=== PATIENT | female | born 1965 | race Two or more races ===

== ENCOUNTER 2018-12-19 10:14 | Emergency (ER) | payer OTHER ==
[~2018-12-19] VITALS: Ht 165.1 cm; Wt 75.3 kg
[2018-12-19 10:17] VITALS: Ht 165.1 cm; Wt 75.3 kg
[2018-12-19 11:03] LABS: BASOPHIL % 0.4 % (0-2); PLATELET COUNT 240 x10^3mcL (130-400); RED CELL DISTRIBUTION WIDTH 13.2 % (11.5-14.5)
[2018-12-19 11:17] LABS: CALCIUM 9.3 mg/dL (8.5-10.1); CARBON DIOXIDE 29.1 mmol/L (21-32); CHLORIDE SERUM 104 mmol/L (98-107); CREATININE SERUM 0.9 mg/dL (0.6-1.0); GFR1 > 60 mL/min; GLUCOSE SERUM 125 mg/dL (74-106); POTASSIUM SERUM 4.4 mmol/L (3.5-5.1); SODIUM SERUM 140 mmol/L (136-145)
[2018-12-19 11:21] LABS: ALBUMIN 3.9 g/dL (3.4-5.0); ALKALINE PHOSPHATASE 59 U/L (46-116); ALT/SGPT 15 U/L (14-59); AST/SGOT 10 U/L (15-37); BILIRUBIN TOTAL 0.62 mg/dL (0.20-1.00); LIPASE 181 IU/L (73-393)
[2018-12-19 15:25] VITALS: BP 149/68
== END 2018-12-19 15:25 | disposition home or self-care (01) ==
LOC: ED 10:14 → EDBD 10:14 → ED 15:25
PROVIDERS: Emergency Medicine
DX: R33.9 Retention of urine, unspecified (principal); N83.9 Noninflammatory disorder of ovary, fallopian tube and broad ligament, unspecified; I10 Essential (primary) hypertension
CPT/HCPCS: 36415; Q0092